=== PATIENT | male | born 1955 | race Caucasian/White ===

== ENCOUNTER 2021-09-12 00:05 | Inpatient (IN) | payer OTHER, SELFPAY ==
[2021-09-12] VITALS (60 sets, daily range): BP systolic 0–136; BP diastolic 0–109; PULSE 0–144; RESP 0–51; TEMP 28.2–38.3; O2SAT 91–100
--- NOTE | ~2021-09-12 | XR_ITS ---
EXAMINATION: XR chest ET placement DATE: 09/12/2021 01:12 INDICATION: Dyspnea. Hypoxia. Endotracheal tube placement. TECHNIQUE: frontal view of the chest was obtained. COMPARISON: Chest radiograph dated 01/01/2009 FINDINGS: Endotracheal tube tip 4.8 cm above the sonia. Bilateral mild scattered patchy airspace opacities thr oughout both lungs. No pleural effusion or pneumothorax. Mild cardiomegaly. IMPRESSION: 1. Scattered bilateral patchy airspace opacities which could represent atelectasis or pneumonia. Reviewed, dictated and finalized at location A. ENT ACCESS SPECIALIST IMPRESSION: 1. Scattered bilateral patchy airspace opacities which could represent atelecta sis or pneumonia.
--- NOTE | ~2021-09-12 | CT_ITS ---
EXAMINATION: CT chest abdomen pelvis wo con DATE: 09/12/2021 06:32 INDICATION: Sepsis TECHNIQUE: Computed tomography (CT) of the chest, abdomen, and pelvis was performed without intraveno us contrast. Automated exposure control and iterative reconstruction technique were employed. The dos e-length product was 2113.63 mGy-cm. COMPARISON: None FINDINGS: CHEST CT: Endotracheal tube tip 4.8 cm above the sonia. Bandlike and patchy airspace opacities throughout the bilateral lungs with appearance suspicious for COVID pneumonia. Persistent dependent atelectasis in the left lower lobe. No pleural effusion or pneumothorax. Borderline heart size. No pericardial effus ion. Thoracic aorta is normal in caliber. No pathologically enlarged thoracic lymphadenopathy. There are bridging osteophytes at multiple levels in the spine, consistent with diffuse idiopathic skeletal hyperostosis (DISH). ABDOMEN/PELVIS CT: Diffuse hepatic steatosis. Gallbladder, spleen, pancreas, bilateral kidneys and right adrenal gland a re normal. 1 cm left adrenal nodule too small to definitively characterize most likely an adenoma. Mu ltiple surgical clips extending from the left iliac chain the right peritoneum at the level of the ce liac axis consistent with likely prior lymph node dissection. As in a Knox catheter within the parti ally decompressed bladder. Bowels including the appendix are normal. Surgical scar with multiple surg ical clips along the midline of the anterior abdominal wall. Small fat-containing right inguinal rian ia. No free intraperitoneal gas or fluid. No pathologically enlarged lymphadenopathy. Right femoral c entral venous catheter with distal tip coiled with small amount of gas at the junction of the right e xternal iliac and common femoral veins. Severe lower lumbar facet osteoarthritis. Mild to moderate le ft and moderate to severe right hip osteoarthritis. IMPRESSION: 1. Diffuse bilateral lung disease with appearance most consistent with COVID pneumonia. 2. No acute intra-abdominal/pelvic process. 3. Diffuse hepatic steatosis. 4. Small fat-containing right inguinal hernia. Reviewed, dictated and finalized at location A. CTOR ENVIRONMENTAL IMPRESSION: 1. Diffuse bilateral lung disease with appearance most consistent with COVID pn eumonia. 2. No acute intra-abdominal/pelvic process. 3. Diffuse hepatic steatosis. 4. Small fat-containing right inguinal hernia.
--- NOTE | ~2021-09-12 | CT_ITS ---
EXAMINATION: CT brain wo con DATE: 09/12/2021 06:32 INDICATION: Altered mental status TECHNIQUE: Computed tomography (CT) of the head was performed without intravenous contrast. Sagittal and coronal reconstructions were performed. The mA was adjusted according to patient size. Iterative reconstruction technique was employed. The dose-length product was 681.00 mGy-cm. COMPARISON: head CT dated 01/01/2009 FINDINGS: There is motion artifact which moderately limits evaluation. No acute intracranial hemorrhage, acute infarction or abnormal extra axial fluid collection. Ventricles are normal and symmetric. No mass/mas s effect. The orbits, paranasal sinuses and mastoid air cells are normal. IMPRESSION: 1. No acute intracranial process. Study moderately limited by motion. Reviewed, dictated and finalized at location A. RT DESK CLERK
--- NOTE | ~2021-09-12 | CT_ITS ---
EXAMINATION: CT cervical spine wo con DATE: 09/12/2021 06:32 INDICATION: Fall with altered mental status and sepsis. TECHNIQUE: Computed tomography (CT) of the cervical spine was performed without intravenous contrast. Automated exposure control and iterative reconstruction technique were employed. The dose-length pro duct was 624.42 mGy-cm. COMPARISON: None FINDINGS: Alignment is normal. Vertebral body heights are normal. No fracture. Moderate disc height loss at C3- C4 and mild disc height loss at the remaining levels throughout the cervical spine. Severe osteoarthr itis at the atlantoaxial articulation along with multilevel severe uncovertebral and facet joints. Po sterior disc osteophyte complexes resulting in mild central canal stenosis at C3-C4 and C4-C5. There is also moderate bilateral neural foraminal stenosis at both these levels. Mild neural foraminal sten osis throughout the remainder of the cervical spine. Cervical soft tissues are unremarkable. Endotrac heal tube is in expected position. Mild bandlike opacities in the bilateral apices with appearance si milar region of the lungs on chest CT favoring COVID pneumonia. IMPRESSION: 1. Moderate cervical spondylosis. No acute osseous abnormality. Reviewed, dictated and finalized at location A. ORATION MANAGER
--- NOTE | 2021-09-12 00:10 | ECG_ITS ---
Measurements Intervals [place] Rate: 102 P: MN: 0 QRS: 23 QRSD: 134 T: -34 QT: 372 QTc: 485 Interpretive Statements SINUS RHYTHM WITH FIRST DEGREE AV BLOCK CHANGES TO ATRIAL FIBRILLATION RIGHT BUNDLE BRANCH BLOCK CONSIDER INFERIOR INFARCT, AGE INDETERMINATE BASELINE ARTIFACT- I, II, III, AVR, AVF, V1, V3-V6 ABNORMAL ECG Electronically Signed On 09-12-2021 7:47:34 GUITAR MAKER by Chirag Arshad D.O.
[2021-09-12] MEDS: IPRATROPIUM BR 0.02% INH SOLN 0.5 MG/2.5 ML VIAL INHALATION (00:22)
[2021-09-12] MEDS: ALBUTEROL SULFATE NEB 2.5 MG/0.5 ML INH 5 MG INHALATION (00:22)
[2021-09-12 00:35] LABS: Alveolar/Arterial O2 Gradient 542.7 mmHg; Base Excess ABG -20.5 mEq/l (+/-2.0); Fractional Inspired Oxygen 100 %; HCO3 ABG 8.3 mEq/l (22.0-26.0); Oxygen Content ABG 21.7 %vol (16.0-22.0); Oxygen Saturation ABG 97.8 % (95.0-100.0); Oxyhemoglobin 96.8 % THb (90.0-100.0); PCO2 ABG 29.2 mmHg (35.0-45.0); PO2 ABG 141.1 mmHg (80.0-100.0); PO2 FiO2 Ratio Arterial Blood 1.41 %; Total Hemoglobin 15.8 g/dL (12.0-18.0)
[2021-09-12] MEDS: LORazepam INJ (*CRX) 2 MG/ML VIAL 0.5 MG IV PUSH (00:35)
[2021-09-12 00:36] LABS: Modified Allen's Test Pass; Site Drawn LEFT RADIAL; pH ABG 7.073 (7.350-7.450)
[2021-09-12 00:37] LABS: Device NON-INVASIVE VENT; Non-Invasive Inspiratory Pressure 12 CMH2O; Non-Invasive Vent Rate 4 /MIN
[2021-09-12 00:38] LABS: Non-Invasive Expiratory Pressure 6 CMH2O
--- NOTE | 2021-09-12 00:42 | PC.NURSE ---
Pt continues to sat 70% on Bipap, per ERP Gio, pt to be intubated at bedside.
--- NOTE | 2021-09-12 00:50 | PC.NURSE ---
ERP at bedside for intubation. 0050 20 mg Etomidate administered. 0051 50 mg succynline choline administered. Gio places ETT tube 7.5 at 24 at lip. Positive color change for placement noted 005.
[2021-09-12] MEDS: RAPID SEQUENCE INTUBATION KIT 1 EACH (00:51)
--- NOTE | 2021-09-12 00:57 | ED.GENADULT ---
HPI - General Adult General Chief complaint: Shortness of Breath/Dyspnea Stated complaint: RESP DISTRESS Time Seen by Provider: 09/12/21 00:10 History of Present Illness HPI narrative: Patient 66-year-old gentleman who presents emerged part with chief complaint of shortness of breath. The patient was recently admitted at [facility] after having COVID-19 spent 19 days in the hospital and was discharged home. The patient over the last 7 days has gotten a little weaker and had an episode where he fell striking his head and then subsequently has been more short of breath since then patient family reports that he has been progressively weaker and progressively more short of breath he has not been on oxygen at home. Related Data Allergies Allergy/AdvReac Type Severity Reaction Status Date / Time No Known Allergies Allergy Mild Unverified 09/12/21 00:13 Review of Systems Review of Systems: A 10 system review of systems was completed on the patient and is negative except for what is stated in the HPI. Nursing and ancillary documentation was reviewed. FOR[facility] Past Medical History Medical History (Updated 09/12/21 @ 05:11 by Esmer Knox DO) Obesity Pneumonia due to COVID-19 virus 08/15/2021 Exam Narrative: GENERAL: Well-appearing, well-nourished, and in moderate to severe respiratory distress. HEAD: Normocephalic, atraumatic. EYES: PERRLA and EOMI. ENT: Nares clear, no rhinorrhea or epistaxis. Mucous membranes moist. NECK: Supple. CHEST: Clear to auscultation. No respiratory distress. HEART: Regular rate and rhythm. No murmur heard. Normal peripheral pulses. ABDOMEN: Soft, nontender, nondistended, normal active bowel sounds. EXTREMITIES: Normal range of motion. No edema. SKIN: Mottled. NEURO: No focal deficits. Alert and oriented x3. PSYCH: Normal mood and affect. Course Course Emergency Course: While the patient was continuing resuscitation the patient became bradycardic and had a brief episode of cardiac arrest. Patient received 2 doses of epinephrine a milligram of atropine and received several amps of bicarb. Patient had return of spontaneous circulation Vital Signs Vital signs: Vital Signs Temperature 28.2 C L 09/12/21 00:03 Pulse Rate 131 H 09/12/21 00:03 Respiratory Rate 34 H 09/12/21 00:03 Blood Pressure 136/109 H 09/12/21 00:03 Pulse Oximetry 91 09/12/21 00:03 Temperature 37.8 C H 09/12/21 05:00 Pulse Rate 62 09/12/21 05:00 Respiratory Rate 39 H 09/12/21 05:00 Blood Pressure 101/77 09/12/21 05:00 Pulse Oximetry 96 09/12/21 05:00 Procedures Intubation Intubation #1: Intubation Date: 09/12/21 Intubation Time: 00:57 Time out performed: Yes sedative: Etomidate Mg Given: 20 paralytic: Succinylcholine Mg Given: 100 Laryngoscope: fiber optic video scope Tube Size (cm): 7.5 Method of Intubation: orotracheal Number of Attempts: 1 Tube Secured Depth (cm): 24 Tube Secured Location: lips Tube Placement Confirmation: visualized tube passing through cords, equal breath sounds bilaterally, no breath sounds over epigastrium and confirmation by capnometry Patient Tolerated Procedure: well Intubation Complications: none Medical Decision Making Vital Signs Vital Signs: Vital Signs Temperature 28.2 C L 09/12/21 00:03 Pulse Rate 131 H 09/12/21 00:03 Respiratory Rate 34 H 09/12/21 00:03 Blood Pressure 136/109 H 09/12/21 00:03 Pulse Oximetry 91 09/12/21 00:03 Temperature 37.8 C H 09/12/21 05:00 Pulse Rate 62 09/12/21 05:00 Respiratory Rate 39 H 09/12/21 05:00 Blood Pressure 101/77 09/12/21 05:00 Pulse Oximetry 96 09/12/21 05:00 Lab Data Result diagrams: 09/12/21 02:39 09/12/21 02:39 Labs: Lab Results 09/12/21 09/12/21 09/12/21 Range/Units 00:25 02:39 02:39 WBC 16.5 H (4.5-10.0) K/mm3 RBC 5.
[2021-09-12] MEDS: SODIUM CHLORIDE 0.9% IV 1,000 ML 999 ML IV CONT ×3 (01:18→03:46)
[2021-09-12] MEDS: PROPOFOL IV EMULSION 100 ML 4.05 MG IV CONT (01:24)
--- NOTE | 2021-09-12 01:24 | PC.NURSE ---
propofol started 4.1ml/hr rn double check afy jurado rn
[2021-09-12] MEDS: SODIUM BICARBONATE 8.4% 50 MEQ/50 ML SYRINGE IV PUSH (01:31)
--- NOTE | 2021-09-12 02:00 | PC.NURSE ---
Pt pulling at IV, tubes, not tolerating placing central line. Soft restraints applied per Dr. Knox. Order put in by Dr. Powers, comfort addressed.
[2021-09-12] MEDS: MIDAZOLAM HCL (*CRX) 2 MG/2 ML VIAL 4 MG IV PUSH (02:03)
--- NOTE | 2021-09-12 02:36 | PC.NURSE ---
0210 procedure for femoral central line insertion began. Dr. Knox preforming procedure, at bedside with this RN.
[2021-09-12] MEDS: NOREPINEPHRINE 8 MG/D5W 250 ML 8 MG/250 ML BAG 18.75 MG IV CONT (02:54)
[2021-09-12 02:59] LABS: Basophils Absolute Auto 0.1 K/mm3 (0.0-0.1); Basophils Percent Auto 0.5 % (0.2-1.2); Eosinophils Absolute Auto 0.1 K/mm3 (0-0.3); Eosinophils Percent Auto 0.4 % (0-4.4); Hematocrit 47.5 % (42.0-52.0); Hemoglobin 14.5 g/dL (14.0-18.0); Immature Granulocyte Absolute 0.57 K/mm3 (0.00-0.031); Immature Granulocyte Percent A 3.4 % (0-0.5); Lymphocytes Absolute Auto 3.09 K/mm3 (0.9-3.2); Lymphocytes Percent Auto 18.7 % (18.3-44.2); Mean Corpuscular HGB Conc 30.5 g/dl (32-36); Mean Corpuscular Hemoglobin 28.9 pg (26-34); Mean Corpuscular Volume 94.8 fl (80-100); Mean Platelet Volume 10.2 fl (7.4-10.4); Monocytes Absolute Auto 1.5 K/mm3 (0.1-0.6); Monocytes Percent Auto 9.3 % (2.6-8.5); Neutrophils Absolute Auto 11.2 K/mm3 (1.3-6.7); Neutrophils Percent Auto 67.7 % (45.5-73.1); Platelet Count Result 153 k/mm3 (150-375); Red Blood Count 5.01 M/mm3 (4.6-6.20); Red Cell Distribution Width 14.3 % (11.5-14.5); White Blood Count 16.5 K/mm3 (4.5-10.0)
[2021-09-12 03:09] LABS: Salicylate < 1.0 mg/dL (2-20)
[2021-09-12 03:13] LABS: INR 1.4; Prothrombin Time 16.7 Seconds (11.1-14.7)
[2021-09-12 03:14] LABS: Partial Thromboplastin Time 29.9 SECONDS (22.3-36.8)
[2021-09-12 03:17] LABS: Alanine Aminotransferase 294 U/L (4-50); Albumin Level 3.6 g/dL (3.5-5.1); Alkaline Phosphatase 94 U/L (38-126); Anion Gap 19 mmol/L (8-16); Aspartate Amino Transferase 392 U/L (17-59); Bilirubin,Total 0.9 mg/dL (0.2-1.3); Blood Urea Nitrogen 18 mg/dL (9-20); Calcium 8.4 mg/dL (8.4-10.2); Carbon Dioxide 17 mmol/L (22-30); Chloride 103 mmol/L (98-107); Estimated CRCL calculation 47 ml/min; Estimated Glomerular Filt Rate 32; Glucose 270 mg/dL (65-110); Magnesium 2.8 mg/dL (1.6-2.3); Potassium 5.4 mmol/L (3.4-5.0); Sodium 139 mmol/L (137-145)
--- NOTE | 2021-09-12 03:19 | PC.NURSE ---
propofol rn double check merrill w rn.
[2021-09-12 03:29] LABS: Lactic Acid Reflex 11.7 mmol/L (0.7-2.1)
[2021-09-12 03:31] LABS: Add Urine Microscopic? YES; Appearance Urine Cloudy (Clear); Bilirubin Urine Negative (Negative); Blood Urine 1+ (Negative); Color Urine Yellow (Yellow); Glucose Urine UA Negative (Negative); Ketones Urine Negative (Negative); Leukocyte Esterase Ur Negative LEU/UL (Negative); Mucus Urine Few /lpf; Nitrate Urine Negative (Negative); Protein Urine 1+ mg/dL (Negative); Specific Grav Ur 1.019 (1.001-1.035); Squamous Epithelial Cell Urine Occasional /hpf (Few); Urobilinogen Urine Negative mg/dL (<2.0)
[2021-09-12 03:36] LABS: NT Pro B Type Natriuretic Pept 14400 pg/mL (5-100); Troponin I 0.462 ng/mL (0.000-0.034)
[2021-09-12] MEDS: FENTANYL 2,500MCG/NS250ML(*CRX 2,500 MCG/250 ML BAG IV CONT (03:53)
[2021-09-12] MEDS: MIDAZOLAM 100MG/NS 100ML(*CRX) 100 MG/100 ML BAG IV CONT (03:55)
--- NOTE | 2021-09-12 04:09 | WPDPROCEDUR ---
Procedures Central Line Placement Right Femoral: Central Line Date: 09/12/21 Central Line Time: 02:15 Discussed w/ the patient/family/POA,the placement of a central venous catheter, including its clinical necessity/indication & associated potential risks, benifits and alternatives.: Yes The patient/family/POA understand(s) and acknowledge(s) the need to proceed with central venous catheter insertion as an important element of the patient's clinical management.: Yes Time Out Performed: Yes Patient Position: trendelenburg Patient placed on monitor/pulse ox: Yes Provider Prep: mask, sterile gown, sterile gloves, Max. sterile barrier precautions, cap and hand hygiene with conventional soap/water or alcohol based hand rub Central line prep: 2% Chlorhexidine scrub Sterile US Technique with sterile gel/sterile probe covers: Yes Central line lumen inserted: triple Occitan: 7 Length (cm): 16 Depth of Insertion (cm): 15 Post Procedure: sutured in place, good blood return, all ports aspirated, flushed, capped, transparent dressing, antimicrobial product and aseptic technique maintained throughout procedure Patient tolerated procedure: well and no complications
--- NOTE | 2021-09-12 04:42 | PC.NURSE ---
Vasopressor not scanning at this time, called pharmacy, spoke with Saúl and they stated that they need to change it on their end and stated that label would not work . Drip started at 0.03 units/min.
--- NOTE | 2021-09-12 04:47 | PC.NURSE ---
Witnessed TRES Collins attempt to scan vasopressor and not work. Verified rate at with her.
[2021-09-12] MEDS: VASOPRESSIN INJ 100 UNITS in DEXTROSE 5% 95 ML IV CONT (04:49)
--- NOTE | 2021-09-12 04:50 | PC.NURSE ---
had to manually chart vasopressor at this time
--- NOTE | 2021-09-12 05:07 | PM.IMHP ---
H&P: HPI History of Present Illness Date/Time: 09/12/21 02:07 Chief Complaint: Low oxygen saturations Narrative: Source of information: Patient's Patient was seen and examined in the ER. 66-year-old male with past medical history of obesity and recent COVID pneumonia who presented to the ER via EMS from home with respiratory distress. The patient had been diagnosed with COVID-19 on 08/15/2021 and had been hospitalized at [facility] for 19 days. He was discharged from the hospital just before [place]. Over the past 7 days the patient has become progressively weaker. He actually had a fall day before yesterday where he fell and struck his head. Patient's reports that the patient had been more short of breath over the last 2 days. She had been checking his pulse ox at home in his oxygen saturations were in the mid to upper 80s. She had tried to get the patient to come into the ER after he fell and struck his head but he would not agree to come. His home health nurse evaluated him on the and arranged for home oxygen as the patient was still refusing to come the hospital. A couple hours after he was started on home oxygen the patient's respiratory status declined further with increased work of breathing and respiratory distress. The patient's called EMS and the patient was found to have oxygen saturations of 70%. The patient was placed on CPAP in the field and was switched to BiPAP on arrival to the hospital. ABG performed on BiPAP 12/ with 100% FiO2 demonstrated pH of 7.01, pCO2 29 PO2 of 141 and bicarb of 8. The patient's extremities were noted to be cold and mottled. The patient was subsequently intubated by ER staff. After intubation laboratory called to state that all the patient's blood specimens had hemolyzed. Immediately following intubation the patient became hypotensive. I went to assist with patient and placed a femoral line for pressors and to obtain labs. The patient had received 2 L of bolus in the ER and I ordered a 3rd. The patient was started on Levophed initially was only requiring 5 mcg of Levophed and remained relatively stable for about 2 hours. After that time he rapidly required increased Levophed and was started on vasopressin. Despite 2 pressors patient's blood pressures remained in the 60 systolic. At approximately 5:20 a.m. a code was called when the patient the patient Lewis down and received atropine and push epinephrine. CPR was initiated. The patient received 2 amps of bicarb and on pulse check was in asystole. Patient received another round of epinephrine and on repeat pulse check had ROSC. I went down to re-evaluate the patient at that time in the patient was on Levophed at 12 mcg and vasopressin of 0.6. The patient received another 2 amps of sodium bicarb. I increased the patient's Levophed initially up to 20 but blood pressures remain low and increased Levophed at 30. I attempted a radial art line and had/of arterial blood and a guidewire threaded but once catheter was inserted there is no arterial return. Attempt was truncated in preference of getting the patient to CT scanner for further evaluation of cause of septic shock. Epinephrine drip was ordered by ER physician. On 3 pressors the patient's blood pressures did improve up to the 110-120 systolic briefly. In the patient's blood pressures again trended back down. He received an additional 2 amps of sodium bicarb. The patient was taken for stat CT of the chest abdomen pelvis. The patient has chronic swelling of the left lower extremity but notes new swelling of the right lower extremity over the last week. She reports the swelling from his left lower extremity is due to his bad knees any needs knee replacements. reports that the patient was healthy until E has diagnosed with COVID. He does his primary care physician at least once a year. Review of Systems Review of Systems: ROS unobtainable: Yes shaniqua
--- NOTE | 2021-09-12 05:13 | PC.NURSE ---
Medical information request to Girma Field at this time.
[2021-09-12] MEDS: SODIUM BICARBONATE 8.4% 50 MEQ/50 ML SYRINGE 100 MEQ IV PUSH ×2 (05:15)
--- NOTE | 2021-09-12 05:31 | PC.NURSE ---
0513 - ATROPINE 0514 EPI 0515 SODIUM BICARB 0515 SODIUM BICARB 0518 NO PULSE CODE BLUE CALLED 0519 EPI 0520 PULSE CHECK - PULSE BACK VITAL SIGNS 140 HR, 19 RR, BP 78/[address] DICKERSON 2 MORE AMPS OF BICARB AND EPI DRIP START @ 1MG 0523 BICARB AMP GIVEN 0524 LEVO BUMPED FROM 12 TO 20 0524 VASOPRESSOR 0.06 0526 BICARB SECOND AMP GIVEN
[2021-09-12 05:34] LABS: Alveolar/Arterial O2 Gradient 488.4 mmHg; Base Excess ABG -13.3 mEq/l (+/-2.0); Carboxyhemoglobin 0.3 % THb (0-2.0); Fractional Inspired Oxygen 100 %; HCO3 ABG 19.1 mEq/l (22.0-26.0); Methemoglobin ABG 0.3 %THb (0-1.5); Oxygen Content ABG 20.1 %vol (16.0-22.0); Oxygen Saturation ABG 97.6 % (95.0-100.0); Oxyhemoglobin 96.7 % THb (90.0-100.0); PO2 ABG 148.2 mmHg (80.0-100.0); PO2 FiO2 Ratio Arterial Blood 1.48 %; Reduced Hemoglobin 2.7 %THb (0-5.0); Total Hemoglobin 14.6 g/dL (12.0-18.0)
[2021-09-12 05:35] LABS: PCO2 ABG 76.4 mmHg (35.0-45.0); pH ABG 7.015 (7.350-7.450)
[2021-09-12 05:36] LABS: Arterial Blood Gas PEEP 5 cmH2O; Arterial Blood Gas Tidal Volume 550 ml; Arterial Blood Gas Vent Mode CMV; Arterial Blood Gas Ventilator rate 18 /MIN; Device VENTILATOR; Modified Allen's Test Pass; Site Drawn LEFT RADIAL
[2021-09-12] MEDS: EPINEPHrine INJ 1 MG in DEXTROSE 5% IN WATER 250 ML 15.06 MG IV CONT (05:36)
--- NOTE | 2021-09-12 05:37 | PC.NURSE ---
0536: IVAN from Dr. Knox, Epi drip started at 10mcg/min
--- NOTE | 2021-09-12 05:47 | PC.NURSE ---
Dr. Knox at bedside placing an ART line
[2021-09-12 05:54] LABS: Reflex Lactic Acid Yes or No Add Lactic
[2021-09-12] MEDS: SODIUM BICARBONATE 8.4% 150 MEQ in DEXTROSE 5% 1,000 ML 950 ML IV CONT (06:08)
--- NOTE | 2021-09-12 06:35 | PC.NURSE ---
0608: VORB for 2 Amp BiCarb before taking to CT scan
--- NOTE | 2021-09-12 06:45 | PC.NURSE ---
0645: Pt pressure 45/27 at this time. VORB for 500mcg of Epi.
--- NOTE | 2021-09-12 06:45 | PC.NURSE ---
per ponce adkins hopemeliza- stop the fentanyl, and wean versed. Dr. Powers aware, Elise, RN aware.
--- NOTE | 2021-09-12 07:13 | PC.NURSE ---
Versed to be increased to 2 mg/hr per ERP Gio at this time.
--- NOTE | 2021-09-12 07:20 | PC.NURSE ---
Pt bhargav in the 30s on monitor and pulseless. ACLS protocol started at EPI given at 0720 with amp of Bicarb given at 0721. Pt continued to be pulseless at 0723. Additional EPI and Bicarb given. Pulse obtained at 0724.
--- NOTE | 2021-09-12 07:55 | PC.NURSE ---
ICU MD and family at bedside. Family decided that if patient were to code again that they would not want resuscitation attempted. Pt heart rate dropped to 30s. EPI drip increased per ICU MD verbal order to 20. PT asystole on the monitor at [address] Soria and family at the bedside who pronouced. All IV drips and ventilator stopped at that time.
--- NOTE | 2021-09-12 08:17 | PC.NURSE ---
[facility] contacted at 0807, spoke with Nate Mclaughlin. Okay to release patient to [facility] home. [facility] contacted at 0812 and spoke with Em. Pt is released from them as well. ET tube removed per request. Family remains at bedside. PCP office contacted and waiting for return call at this time.
--- NOTE | 2021-09-12 08:42 | PC.NURSE ---
Dr Vee office called and was update on patient status.
[2021-09-12 09:42] LABS: Lactic Acid > 12.0 mmol/L (0.7-2.1)
--- NOTE | 2021-09-12 10:12 | WPDCNINT ---
Assessment and Plan Assessment and plan (1) Cardiac arrest: Code(s): I46.9 - Cardiac arrest, cause unspecified Status: Acute (2) Acute respiratory failure: Code(s): J96.00 - Acute respiratory failure, unspecified whether with hypoxia or hypercapnia Status: Acute (3) Acute renal failure: Qualifiers: Acute renal failure type: unspecified Qualified Code(s): N17.9 - Acute kidney failure, unspecified Code(s): N17.9 - Acute kidney failure, unspecified Status: Acute (4) Septic shock: Code(s): A41.9 - Sepsis, unspecified organism; R65.21 - Severe sepsis with septic shock Status: Acute (5) Pneumonia due to COVID-19 virus: Code(s): U07.1 - COVID-19; J12.82 - Pneumonia due to coronavirus disease 2019 Status: Acute Additional Plan Patient had recent diagnosis of COVID-19 pneumonia and now presented with acute respiratory failure acute renal failure and septic shock. CT showed diffuse bilateral lung disease and hepatic steatosis. Patient was given IV fluid bolus, started on broad-spectrum antibiotics for suspected secondary bacterial infection leading to septic shock. A right femoral central venous catheter in place by admitting physician and patient was started on vasopressors and patient at this time was on 3 different vasopressors at high dose. When I reviewed the chart I suspect patient may have a PE and was considering getting a stat echocardiogram and Dopplers of lower extremities. But by this time patient has had 3 different events of PEA cardiac arrest in ER requiring resuscitation. He was in severe shock despite high dose of 3 vasopressor. I I reviewed the chart, discussed case with hospitalist and ER physician and examined the patient. Then I spoke to patient's and daughter at bedside. I discussed patient's current condition including septic shock, pneumonia, acute renal failure, acute respiratory failure, multiple cardiac arrests and possibility of anoxic brain injury and overall guarded prognosis. Patient's by this time for seeing multiple resuscitation effort fell that she does not think he would want to continue like this. Patient id never wanted to come to the hospital in the 1st place. She in agreement with her her daughter at that time requested the patient be made DNR. We at that time discussed that we will continue medical therapy and further investigation and testing but they requested that in case patient has another cardiac arrests he that no further CPR be performed. While we were discussing and making plans for him to be transferred to ICU and his other children to come visit him, patient again went into bradycardia and PEA. I increased epi infusion to 20 mics at that time but it did not make any difference. Patient soon lost his pulse. Patient had no palpable pulses in any of his carotid or femoral arteries with Doppler. Patient soon became asystole. He was not resuscitated as per patient's 's request who was in the room at that time holding his hand. Patient was pronounced at 7:52 a.m. Total Critical Care Time - 32 minutes Due to a high probability of clinically significant, life threatening deterioration, the patient required my highest level of preparedness to intervene emergently and I personally spent this critical care time directly and personally managing the patient. This critical care time included obtaining a history; examining the patient; pulse oximetry; ordering and review of studies; arranging urgent treatment with development of a management plan; evaluation of patient's response to treatment; frequent reassessment; and discussions with other providers. It was exclusive of separately billable procedures and treating other patients and teaching time. Please see Assessment and Plan section and the rest of the note for further information on patient assessment and treatment. Physician'S Aide Consult Note Consult date: 09/12/21 HPI
--- NOTE | 2021-10-16 16:21 | PM.DDS ---
Discharge Summary Date and Time Date of : 09/12/21 Time of : 07:52 Provider Pronounced By: Leobardo Soria Probable Cause of Probable Cause of : COVID-19 pneumonia, septic shock, acute respiratory failure, cardiac arrest Summary Hospital Course: Patient had recent diagnosis of COVID-19 pneumonia and on 09/12 presented with acute respiratory failure acute renal failure and septic shock. CT showed diffuse bilateral lung disease and hepatic steatosis. Patient was given IV fluid bolus, started on broad-spectrum antibiotics for suspected secondary bacterial infection leading to septic shock. A right femoral central venous catheter in place by admitting physician and patient was started on vasopressors and patient at this time was on 3 different vasopressors at high dose. When I reviewed the chart I suspect patient may have a PE and was considering getting a stat echocardiogram and Dopplers of lower extremities. But by this time patient has had 3 different events of PEA cardiac arrest in ER requiring resuscitation. He was in severe shock despite high dose of 3 vasopressor. I reviewed the chart, discussed case with hospitalist and ER physician and examined the patient. Then I spoke to patient's and daughter at bedside. I discussed patient's current condition including septic shock, pneumonia, acute renal failure, acute respiratory failure, multiple cardiac arrests and possibility of anoxic brain injury and overall guarded prognosis. Patient's by this time for seeing multiple resuscitation effort felt that she does not think he would want to continue like this. She told me that Patient never wanted to come to the hospital in the first place. She was in agreement with her her daughter at that time requested the patient be made DNR. We at that time discussed that we will continue medical therapy and further investigation and testing but they requested that in case patient has another cardiac arrests he that no further CPR be performed. While we were discussing and making plans for him to be transferred to ICU and his other children to come visit him, patient again went into bradycardia and PEA. I increased epi infusion to 20 mics at that time but it did not make any difference. Patient soon lost his pulse. Patient had no palpable pulses in any of his carotid or femoral arteries with Doppler. Patient soon became asystole. He was not resuscitated as per patient's 's request who was in the room at that time holding his hand. Patient was pronounced at 7:52 a.m. Additional Data Confirmation of as documented by pronouncing clinician: Pupillary Reflex, Palpable Pulses, Response to Stimuli, Heart Tones and Breath Sounds Family: at bedside Was code activated?: No Provider Requests Autopsy: No Family Requests Autopsy: No
== END 2021-09-12 07:52 | disposition expired | DRG 871 ==
LOC: ANHED 05:31 → ANHICU 07:53
PROVIDERS: Admitting Provider Internal Medicine; Emergency Provider Emergency Medicine; PCP Internal Medicine; Visit Provider Internal Medicine
DX: A41.89 Other specified sepsis (principal); U07.1 COVID-19; J12.82 Pneumonia due to coronavirus disease 2019; R65.21 Severe sepsis with septic shock; J96.00 Acute respiratory failure, unspecified whether with hypoxia or hypercapnia; K72.00 Acute and subacute hepatic failure without coma; N17.9 Acute kidney failure, unspecified; E87.2 Acidosis; I46.9 Cardiac arrest, cause unspecified; E66.9 Obesity, unspecified; Z68.37 Body mass index [BMI] 37.0-37.9, adult; I44.0 Atrioventricular block, first degree; I45.10 Unspecified right bundle-branch block; R94.31 Abnormal electrocardiogram [ECG] [EKG]; K76.0 Fatty (change of) liver, not elsewhere classified; K40.90 Unilateral inguinal hernia, without obstruction or gangrene, not specified as recurrent; M47.812 Spondylosis without myelopathy or radiculopathy, cervical region; Z66 Do not resuscitate; Z85.47 Personal history of malignant neoplasm of testis
CPT/HCPCS: 31500; 36415; 36556; 36600; 70450; 71250; 72125; 74176; 80053; 80307; 81001; 82375; 82805; 83050; 83605; 83735; 83880; 84484; 85025; 85055; 85610; 85730; 87040; 92950; 93005; 94640; 96361; 96365; 96366; 96367; 96368; 96375; 96376; 99291; C1751; J0131; J0171; J0330; J0461; J0692; J2060; J2250; J2704; J3010; J7030; J7060; J7070